=== PATIENT | female | born 1980 | race Caucasian/White ===

== ENCOUNTER → 2016-12-13 | Outpatient (CLI) | payer OTHER ==
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
== END ==
LOC: BRMIMAGING 11:39
PROVIDERS: ATTEND Physician Assistant Medical
DX: S79.911A Unspecified injury of right hip, initial encounter (principal)
CPT/HCPCS: 73502-PO